=== PATIENT | male | born 1955 | race Caucasian/White ===

== ENCOUNTER → 2016-12-22 | Outpatient (CLI) | payer BC | END | disposition home or self-care (01) | LOC: CFH 08:59 → EDSTATUS 09:45 | PROVIDERS: ATTEND Internal Medicine | DX: R14.0 Abdominal distension (gaseous) (principal) | CPT/HCPCS: 76700 ==

== ENCOUNTER 2017-02-01 15:12 | Emergency (ER) | payer BC, MEDICAID ==
[~2017-02-01] VITALS: Ht 180.3 cm; Wt 79.0 kg
[2017-02-01 16:10] LABS: ASPARTATE AMINO TRANSFERASE 15 U/L (15-37); BLOOD UREA NITROGEN 14 mg/dL (7-18)
[2017-02-01 16:15] LABS: IS PT STATUS REG ER OR PRE ER? YES
[2017-02-01] MEDS ORDERED: ALPR-475 PO (17:54)
[2017-02-01 18:30] VITALS: BP 140/84
[2017-02-01] MEDS ORDERED: OMNIPAQUE 350 MG/ML, 100ML BOTTLE ONE (20:15)
== END 2017-02-01 21:47 | disposition home or self-care (01) ==
LOC: ED 21:45
DX: F51.04 Psychophysiologic insomnia (principal); R20.9 Unspecified disturbances of skin sensation; R06.00 Dyspnea, unspecified
CPT/HCPCS: 36415; 70450; 71010; 71275; 80053; 84436; 84443; 84484; 85025; 93005; 99285; Q9967